=== PATIENT | male | born 1975 | race Caucasian/White ===

== ENCOUNTER 2021-07-15 03:18 | Inpatient (IN) ==
[2021-07-15] MEDS ORDERED: Ziprasidone 20 MG, Closed System Device IM Kit 1 EACH in Water for inj. (sterile) 1 ML IM ONE (03:36)
[2021-07-15] MEDS ORDERED: Water for inj. (sterile) 10 ML ONE (03:44)
[2021-07-15] MEDS ORDERED: Ziprasidone 20 MG/VIAL VIAL IM ONE (03:44)
[2021-07-15 04:15] LABS: Bilirubin,Urine Negative (Negative); Blood,Urine Small (Negative); Clarity,Urine Clear (Clear); Color,Urine Light-Yellow (Yellow); Glucose,Urine (UA) >=1000 mg/dL (Normal); Hyaline Casts,Urine Few per lpf (None Seen); Ketones,Urine Negative (Negative); Leukocyte Esterase,Urine Negative (Negative); Nitrite,Urine Negative (Negative); Protein,Urine 200 mg/dL (Neg-Trace); RBC,Urine 0-3 per hpf (0-3); Specific Gravity,Urine 1.012 (1.010-1.025); Squamous Epithelial Cell,Urine Few per hpf (None-Few); Urobilinogen,Urine Normal (Normal); WBC,Urine 0-3 per hpf (0-3)
[2021-07-15 04:16] LABS: Amphetamine Screen,Urine Negative ng/mL (Cutoff=1000); Barbiturate Screen,Urine Negative ng/mL (Cutoff=200); Benzodiazepines Screen,Urine Negative ng/mL (Cutoff=200); Cannabinoid Screen,Urine Negative ng/mL (Cutoff = 50); Cocaine Screen,Urine Negative ng/mL (Cutoff= 300); Opiate Screen,Urine Negative ng/mL (Cutoff=300); Phencyclidine Screen,Urine Negative ng/mL (Cutoff=25)
[2021-07-15] MEDS ORDERED: haloperidoL 5 MG TABLET PO ONE (14:41)
[2021-07-15] MEDS ORDERED: *HR* LORazepam 1 MG TABLET PO ONE (14:41)
[2021-07-15 15:55] LABS: Influenza A PCR Negative (Negative); Influenza B PCR Negative (Negative); Resp. Syncytial Virus PCR Negative (Negative)
[2021-07-15 15:57] LABS: SARS-CoV-2 by PCR (In House) Negative (Negative)
[2021-07-15] MEDS ORDERED: Insulin LISPRO 300 UNITS/3 ML VIAL SUBQ ONE (16:06)
[2021-07-15] MEDS: *HR* Metformin 500 MG TABLET PO SCH (16:56)
[2021-07-15] MEDS ORDERED: Ibuprofen 400 MG TABLET PO PRN (19:38)
[2021-07-15] MEDS ORDERED: QUEtiapine Fumarate 25 MG TABLET PO PRN (19:38)
[2021-07-15] MEDS ORDERED: *HR* LORazepam 1 MG TABLET PO PRN (19:38)
[2021-07-15] MEDS ORDERED: *HR* LORazepam 2 MG/ML VIAL IM PRN ×4 (19:38→20:30)
[2021-07-15] MEDS ORDERED: Acetaminophen 325 MG TABLET PO PRN (19:38)
[2021-07-15] MEDS ORDERED: Haloperidol Lactate 5 MG/ML VIAL IM PRN (19:38)
[2021-07-15] MEDS ORDERED: haloperidoL 5 MG TABLET PO PRN (19:38)
[2021-07-15] MEDS ORDERED: Dextrose 4 GM Chewable Tablets PO PRN ×2 (20:36)
[2021-07-15] MEDS ORDERED: cloNIDine HCL 0.1 MG TABLET PO ONE (20:55)
[2021-07-15] MEDS ORDERED: Gabapentin 300 MG CAPSULE PO SCH (21:00)
[2021-07-15] MEDS: Gabapentin 400 MG CAPSULE PO SCH (22:20)
[2021-07-15] MEDS: hydrOXYzine pamoate 25 MG CAPSULE PO PRN (22:20)
[2021-07-15] MEDS: Melatonin 3 MG TABLET PO SCH (22:20)
[2021-07-15] MEDS: traZODone 50 MG TABLET PO PRN (22:20)
[2021-07-15] MEDS: Insulin LISPRO 300 UNITS/3 ML VIAL SUBQ SCH (22:22)
[2021-07-16] MEDS: *HR* Metformin 500 MG TABLET PO SCH ×2 (09:06→16:34)
[2021-07-16] MEDS: Folic Acid 1 MG TABLET PO SCH (09:06)
[2021-07-16] MEDS: Gabapentin 400 MG CAPSULE PO SCH (09:06)
[2021-07-16] MEDS: Vitamin B Complex/Vit C/Vit E 1 EACH TABLET PO SCH (09:07)
[2021-07-16] MEDS: Insulin LISPRO 300 UNITS/3 ML VIAL SUBQ SCH ×4 (09:08→20:34)
[2021-07-16] MEDS: Oxymetazoline Nasal SPRAY BOTTLE 15ML NS PRN ×2 (09:29→20:36)
[2021-07-16] MEDS ORDERED: Gabapentin 400 MG CAPSULE PO PRN (09:30)
[2021-07-16] MEDS: Thiamine (B-1) 100 MG TABLET PO SCH (09:30)
[2021-07-16] MEDS: Loratadine 10 MG TABLET PO SCH (09:33)
[2021-07-16] MEDS: BuPROPion XL (24 HR) 150 MG TABLET PO SCH (09:34)
[2021-07-16] MEDS: Nicotine 2 MG GUM BC PRN ×5 (09:34→20:13)
[2021-07-16] MEDS ORDERED: MOM Conc 10 ML UD.LIQ PO PRN (13:16)
[2021-07-16] MEDS ORDERED: Mag Hydrox/Al Hydrox/Simeth 30 ML UDC PO PRN (13:16)
[2021-07-16] MEDS: hydrOXYzine pamoate 25 MG CAPSULE PO PRN (20:35)
[2021-07-16] MEDS: Melatonin 3 MG TABLET PO SCH (20:35)
[2021-07-16] MEDS: traZODone 50 MG TABLET PO PRN (20:35)
[2021-07-17] MEDS: Insulin LISPRO 300 UNITS/3 ML VIAL SUBQ SCH (07:41)
[2021-07-17] MEDS: *HR* Metformin 500 MG TABLET PO SCH (07:43)
[2021-07-17] MEDS: Vitamin B Complex/Vit C/Vit E 1 EACH TABLET PO SCH (07:43)
[2021-07-17] MEDS: Thiamine (B-1) 100 MG TABLET PO SCH (07:43)
[2021-07-17] MEDS: Loratadine 10 MG TABLET PO SCH (07:43)
[2021-07-17] MEDS: Nicotine 2 MG GUM BC PRN ×2 (07:43→09:01)
[2021-07-17] MEDS: BuPROPion XL (24 HR) 150 MG TABLET PO SCH (07:43)
[2021-07-17 07:52] VITALS: BP 145/95; PULSE 95; TEMP 97.9; O2SAT 97
[2021-07-17] MEDS: Folic Acid 1 MG TABLET PO SCH (08:14)
== END 2021-07-17 10:15 | disposition home or self-care (01) | DRG 885 ==
LOC: EMEROOARM 03:18 → 1ANU 20:55
PROVIDERS: ADMIT Psychiatry & Neurology Psychiatry; ATTEND Psychiatry & Neurology Psychiatry